=== PATIENT | male | born 1970 | race Caucasian/White ===

== ENCOUNTER 2016-05-19 22:52 | Inpatient (IN) | payer OTHER ==
[~2016-05-19] VITALS: Ht 190.5 cm; Wt 117.2 kg
[~2016-05-19 22:52] MED LIST: AMLO10TA2 PO; ASPI325T11 PO; ATOR20TA58 PO; CHOL500016 PO; INSU100V8 SQ; ISOS30TA4 PO; LEVO200T5 PO; LISI10TA2 PO; METH-38 PO; PRAS10TA4 PO; PREG200C PO; RANI150T2 PO; SITA100T PO
[2016-05-19 23:11] LABS: BASO # 0.1 x10^3/uL (0.0-0.2); BASO % 1 % (0-3); EOS % 1 % (0-3); HEMATOCRIT 49.1 % (39.0-53.0); HEMOGLOBIN 16.9 g/dL (13.0-17.5); LYMPH % 25 % (24-48); MEAN CORPUSCULAR HEMOGLOBIN 30 pg (25-35); MEAN CORPUSCULAR HGB CONC 35 g/dL (31-37); MEAN CORPUSCULAR VOLUME 87 fL (79-100); MONO % 10 % (0-9); NEUT % 64 % (31-73); PLATELET COUNT 143 x10^3/uL (140-400); RED BLOOD COUNT 5.67 x10^6/uL (4.30-5.70); RED CELL DISTRIBUTION WIDTH 13.4 % (11.5-14.5); WHITE BLOOD COUNT 12.3 x10^3/uL (4.0-11.0)
[2016-05-19 23:20] LABS: CALCIUM 9.3 mg/dL (8.5-10.1); CREATININE 1.2 mg/dL (0.7-1.3); GFR 65.2; POTASSIUM 3.8 mmol/L (3.5-5.1)
--- NOTE | 2016-05-19 23:22 | PHYS DOC ---
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 He has history of CAD with 3 stents placed back in September by Dr. Ortega nor he. He's been relatively chest pain-free since that time until this evening. He is also an uncontrolled diabetic he states his blood sugar has been difficult to control at home despite multiple medication changes it still ranges above 300. He currently rates his pain a 9 out of 10 localized to the described area. He denies any SOB. Patient is on aspirin and Effient therapy. Pt is in no acute distress and speaking in complete sentences saturating 99% on room air upon my initial evaluation. Review of Systems Review of Systems Constitutional: Denies fever or chills [] Eyes: Denies change in visual acuity, redness, or eye pain [] HENT: Denies nasal congestion or sore throat [] Respiratory: Denies cough or shortness of breath [] Cardiovascular: No additional information not addressed in HPI [] GI: Denies abdominal pain, nausea, vomiting, bloody stools or diarrhea [] : Denies dysuria or hematuria [] Musculoskeletal: Denies back pain or joint pain [] Integument: Denies rash or skin lesions [] Neurologic: Denies headache, focal weakness or sensory changes [] Endocrine: Denies polyuria or polydipsia [] Current Medications Current Medications Current Medications Medications (Trade) Dose Ordered Sig/Louie Start Time Stop Time Status Last Admin Dose Admin Fentanyl Citrate (Fentanyl 2ml Vial) 50 mcg Q2HR PRN 05/20/16 00:15 UNV Heparin Sodium (Porcine) 3,100 unit PRN Q6HRS PRN 05/19/16 23:45 05/19/16 23:59 3,100 UNIT Heparin Sodium/ Dextrose 500 ml @ 0 mls/hr CONT PRN 05/19/16 23:45 05/20/16 00:00 0 MLS/HR Nitroglycerin 0.4 mg 0.4 mg PRN Q5MIN PRN 05/19/16 23:30 05/19/16 23:47 0.4 MG Allergies Allergies Allergies Coded Allergies Type Severity Reaction Last Updated Verified morphine Allergy Intermediate violent 10/27/15 Yes Physical Exam Physical Exam Constitutional: Well developed, well nourished, no acute distress, non-toxic appearance. [] HENT: Normocephalic, atraumatic, bilateral external ears normal, oropharynx moist, no oral exudates, nose normal. [] Eyes: PERRLA, EOMI, conjunctiva normal, no discharge. [] Neck: Normal range of motion, no tenderness, supple, no stridor. [] Cardiovascular:Heart rate regular rhythm, no murmur [] Lungs & Thorax: Bilateral breath sounds clear to auscultation [] Abdomen: Bowel sounds normal, soft, no tenderness, no masses, no pulsatile masses. [] Skin: Warm, dry, no erythema, no rash. [] Back: No tenderness, no CVA tenderness. [] Extremities: No tenderness, no cyanosis, no clubbing, ROM intact, no edema. [] Neurologic: Alert and oriented X 3, normal motor function, normal sensory function, no focal deficits noted. [] Psychologic: Affect normal, judgement normal, mood normal. [] Current Patient Data Vital Signs Vital Signs Date Time Temp Pulse Resp B/P Pulse Ox O2 Delivery O2 Flow Rate FiO2 05/19/16 23:47 89 120/65 05/19/16 22:56 98.1 20 98 Room Air 98.1 Lab Values Laboratory Tests Test 05/19/16 23:04 05/19/16 23:20 White Blood Count 12.3x10^3/uL (4.0-11.0) H Red Blood Count 5.67x10^6/uL (4.30-5.70) Hemoglobin 16.9g/dL (13.0-17.5) Hematocrit 49.1% (39.0-53.0) Mean Corpuscular Volume 87fL (79-100) Mean Corpuscular Hemoglobin 30pg (25-35) Mean Corpuscular Hemoglobin Concent 35g/dL (31-37) Red Cell Distribution Width 13.4% (11.5-14.5) Platelet Count 143x10^3/uL (140-400) Neutrophils (%) (Auto) 64% (31-73) Lymphocytes (%) (Auto) 25% (24-48) Monocytes (%) (Auto) 10% (0-9) H Eosinophils (%) (Auto) 1% (0-3) Basophils (%) (Auto) 1% (0-3) Neutrophils # (Auto) 7.8x10^3uL (1.8-7.7) H Lymphocytes # (Auto) 3.0x10^3/uL (1.0-4.8) Monocytes # (Auto) 1.2x10^3/uL (0.0-1.1) H Eosinophils # (Auto) 0.1x10^3/uL (0.0-0.7) Basophils # (Auto) 0.1x10^3/uL (0.0-0.2) Platelet Estimate Adequate (ADEQUATE) Giant Platelets Present Sodium Level 137mmol/L (136-145) Potassium Level 3.8mmol/L (3.5-5.1) Chloride Level 100mmol/L (98-107) Carbon Dioxide Level 26mmol/L (21-32) Anion Gap 11 (6-14) Blood Urea Nitrogen 20mg/dL (8-26) Creatinine 1.2mg/dL (0.7-1.3) Estimated GFR (Cockcroft-Gault) 65.2 Glucose Level 333mg/dL (70-99) H Calcium Level 9.3mg/dL (8.5-10.1) Troponin I Quantitative < 0.017ng/mL (0.000-0.055) POC Troponin I 0.00ng/ml (<0.08) Laboratory Tests 05/19/16 23:04 Laboratory Tests 05/19/16 23:04 EKG EKG Initial EKG taken at 2259 reveals sinus rhythm with a rate of 86 bpm. There is some mild ST segment flattening to lead 3 and aVF but no other acute findings. This EKG does not meet STEMI criteria. Repeat EKG taken at 00:13 is essentially unchanged showing sinus rhythm with a rate of 88 bpm. This EKG does not meet STEMI criteria. Radiology/Procedures Radiology/Procedures One view of the chest as interpreted by me does not reveal an acute cardiopulmonary process. Course & Med Decision Making Course & Med Decision Making Pertinent Labs and Imaging studies reviewed. (See chart for details) This 46 her old male who is describing classic symptoms of unstable angina will be admitted to the hospital and started on heparin infusion protocol. I discussed the case with the on-call marketing developer, Dr. Juarez, who agreed with this assessment and plan and that the patient will likely receive a heart catheterization in the morning. His initial troponin is negative. Multiple EKGs were taken it did not show any evidence of acute ischemia. He is given several nitroglycerin without relief. Patient was then given fentanyl as needed for his pain. Admitted to the [facility] for further treatment. His need for admission was discussed with the hospitalist, Dr. Pritchett, who agreed with this plan. Dragon Disclaimer Dragon Disclaimer This electronic medical record was generated, in whole or in part, using a voice recognition dictation system. Departure Departure Impression: Primary Impression: Unstable angina Disposition: ADMITTED INPATIENT Admitting Physician: Other Condition: STABLE Referrals: GUNNAR OCAMPO MD (PCP) CYNTHIA PARISI DO May 19, 2016 23:22
[2016-05-19] MEDS: NITROGLYCERIN SUBLINGUAL 0.4 MG BOTTLE OF 25. SL PRN ×2 (23:26→23:47)
[2016-05-19 23:41] LABS: PLT ESTIMATE ADEQUATE (ADEQUATE)
[2016-05-19] MEDS ORDERED: HEPARIN for IV BOLUS 10,000 UNIT/10 ML VIAL. IV PRN (23:45)
[2016-05-19] MEDS ORDERED: HEPARIN 25,000UTS/500ML PREMIX 500 ML IV PRN (23:45)
[2016-05-20] VITALS (14 sets, daily range): BP systolic 107–141; BP diastolic 66–88
[2016-05-20] MEDS ORDERED: FENTANYL PF 100 MCG/2 ML VIAL. IV ONE ×2 (00:30→10:00)
[2016-05-20] MEDS ORDERED: LISI1TAB7 PO (01:39)
[2016-05-20] MEDS ORDERED: DULO30CA2 PO (01:40)
--- NOTE | 2016-05-20 01:43 | ACF ---
Admission Forms Criteria CHEST PAIN Clinical Indications for Admission to Inpatient Care (Place 'X' for any and all applicable criteria): Admission is indicated for chest pain and ANY ONE of the following(1)(2)(3)(4)(5 ): [ ]I. Angina with acute coronary syndrome (Also use Myocardial Infarction or Angina guideline) [ ]II. Hemodynamic instability [X]III. Angina needing acute intervention as indicated by ALL of the following( 11)(12): [X]a) Unstable angina is present as indicated by angina that is ANY ONE of the following: [ ]i) New onset [ ]ii) Nocturnal [ ]iii) Prolonged at rest [X]iv) Progressive [X]b) Angina warrants acute intervention as indicated by ANY ONE of the following: [ ]i) Recurrent angina (e.g, not responding as previously to treatment) [ ]ii) Angina at rest or with low-level activities despite initial medical therapy [ ]iii) New or presumably new ST-segment depression on ECG [ ]iv) Signs or symptoms of heart failure (eg, dyspnea, pulmonary edema) [ ]v) New or worsening mitral regurgitation [ ]vi) Hemodynamic instability [ ]vii) Dangerous arrhythmia (eg, sustained ventricular tachycardia) [ ]viii) History of percutaneous coronary intervention within 6 months [ ]ix) History of coronary artery bypass graft surgery [ ]x) LULU risk score of 2 or greater[A] [X]xi) History of Diabetes(14) [ ]xii) High-risk cardiac ischemia findings on noninvasive testing (e.g, echocardiogram, treadmill testing, nuclear scan) [ ]xiii) Chronic renal insufficiency (ie, estimated GFR less than 60 mL/min/1.732m) [ ]xiv) Left ventricular ejection fraction less than 40% [ ]IV. Evidence of DE (eg, cardiac biomarkers positive, ST-segment elevation on ECG) also use Myocardial Infarction Criteria Form. [ ]V. Pulmonary edema [ ]. Respiratory distress [ ]VII. Chest pain indicative of serious diagnosis other than coronary artery disease (eg, aortic dissection) [ ]VIII. Contraindications and/or Inappropriate clinical situations for Observational Care in patients with Chest Pain, when ANY ONE of the following is required: [ ]a) Patient with risk factor for pulmonary embolism, acute coronary syndrome and myocardial infarction (18) [ ]b) Patient with Pulmonary embolism require an average LOS of 4.3 days, therefore emergency department observation management is inappropriate 18,23 [ ]c) Painful condition/s in the elderly, have the highest rate of recidivism after emergency department observation management (10.8%) 20,21,22 [ ]d) Elevated cardiac biomarker requires intensive and exhaustive care (19) [ ]IX. General contraindications and/or Inappropriate clinical situations for Observational Care in patients with Chest Pain, when ANY ONE of the following is required: [ ]a) Prediction of prolongation of LOS based on ANY ONE of the following may be considered as a contraindication for observational care 2, 3, 4, 5, 6, 7, 8, 9, 10, 11 [ ]i) Age > 65 yrs. [ ]ii) Patient arriving by ambulance [ ]iii) Patient with high acuity [ ]iv) Patient requiring vital sign monitoring [ ]v) Patient on IV medication [ ]b) Systolic blood pressures 180mmHg 3,12 [ ]c) Patient with altered mental status including delirium and other alteration of consciousness, (3) [ ]d) Patient whose discharge disposition will be to a halfway home or rehabilitation home should not be managed in Emergency Department Observation Unit. CMS rule requires 3 days hospital stay before such placement. 3,13 [ ]e) Patient with failure to thrive due to broad array of etiologies 3,16,17 [ ]f) Inability to ambulate 3,14 Extended stay beyond goal length of stay may be needed for (1)(28): [ ]a) Specific condition diagnosed after evaluation (eg, pulmonary embolism, aortic dissection) [ ]b) Unstable angina [ ]c) Continued suspicion of acute coronary syndrome with inability to complete needed cardiac evaluation (eg, patient clinically unable to undergo stress testing) [ ]d) Myocardial infarction (Contents from ANGINA and CHEST PAIN clinical indications for admission to inpatient care have been integrated in this form) The original [employer] content created by [employer] has been revised. The portions of the content which have been revised are identified through the use of italic text or in bold, and [employer] has neither reviewed nor approved the modified material. All other unmodified content is copyright [employer]. Please see references footnoted in the original [facility] 2016 Admission Criteria Met?: Yes JILLIAN WILL May 20, 2016 01:43
[2016-05-20] MEDS: FENTANYL PF 100 MCG/2 ML VIAL. IV PRN ×3 (02:10→08:14)
--- NOTE | 2016-05-20 06:23 | EKG ---
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 MISSING LEAD V4. OTHERWISE NORMAL EKG. Electronically Signed On 05-21-2016 21:49:54 CDT by Risa Myles
--- NOTE | 2016-05-20 06:24 | EKG ---
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 MISSING LEAD TO V 4. OTHERWISE NORMAL EKG: . Electronically Signed On 05-23-2016 12:32:35 CDT by Risa Myles
--- NOTE | 2016-05-20 07:54 | RAD ---
Portable chest, 05/19/2016: History: Chest pain Comparison is made to a study from 10/27/2015. The heart size and pulmonary vascularity are normal. No pulmonary infiltrates are seen. There is no evidence of pleural fluid. IMPRESSION: No acute cardiopulmonary abnormality is detected.
--- NOTE | 2016-05-20 08:02 | EKG ---
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
[2016-05-20] MEDS ORDERED: IOHEXOL 300 MG/ML 100ML VIAL. ONE (08:13)
[2016-05-20] MEDS ORDERED: LIDOCAINE 2% 20 ML VIAL. ONE (08:14)
[2016-05-20] MEDS ORDERED: FENTANYL PF 100 MCG/2 ML VIAL. ONE (09:38)
[2016-05-20] MEDS ORDERED: MIDAZOLAM HCL 2 MG/2 ML VIAL. ONE (09:38)
--- NOTE | 2016-05-20 09:48 | PDOC2 ---
ANN MARTINEZ GOLD FRAME ASSEMBLER 05/20/16 0948: CARDIAC CONSULT DATE OF CONSULT Date of Consult DATE: 05/20/16 TIME: 09:24 REASON FOR CONSULT Reason for Consult: Chest Pain REFERRING PHYSICIAN Referring Physician: Dr. Modi SOURCE Source: Chart review HISTORY OF PRESENT ILLNESS HISTORY OF PRESENT ILLNESS This is a 46 yo male, witha histroy of CAD s/p PCI to RCA and LCx 09/2015, HTN, HLP, and DM II, who presented with complaints of chest pain. Patient reports acute onset of pain yesterday evening around 8 pm while he was sitting using his computer. Describes as tightness. Radiates to his left and arm jaw with. No exacerbating or relieving factors. Associated with nausea, diaphoresis, and "restricted" breathing. Denies any dizziness or palpitations. No recent illness or fevers. Patient states pain is similar to previous [place], although pain was localized and did not radiated prior. Reports compliance with medications. PAST MEDICAL HISTORY Cardiovascular: CAD (s/p PCI/SEVERIANO to RCA and LCx 09/27/15), HTN, [place], Hyperlipidemia Pulmonary: No pertinent hx CENTRAL NERVOUS SYSTEM: Periperal neuropathy GI: No pertinent hx Heme/Onc: No pertinent hx Hepatobiliary: No pertinent hx Psych: No pertinent hx Musculoskeletal: Osteoarthritis Rheumatologic: No pertinent hx Infectious disease: No pertinent hx ENT: No pertinent hx Renal/: Chronic renal insuff Endocrine: Diabetes, Hypothyroidism Dermatology: No pertinent hx PAST SURGICAL HISTORY Past Surgical History: Cholecystectomy, Other (ureteral stenting; PCI/SEVERIANO 2015) FAMILY HISTORY Family History: Coronary Artery Disease, Diabetes, Hypertension SOCIAL HISTORY Smoke: No ALCOHOL: occassional Drugs: None Lives: with Family CURRENT MEDICATIONS CURRENT MEDICATIONS Current Medications Medications (Trade) Dose Ordered Sig/Louie Route PRN Reason Start Time Stop Time Status Last Admin Dose Admin Nitroglycerin 0.4 mg 0.4 mg PRN Q5MIN PRN SL CHEST PAIN 05/19/16 23:30 05/19/16 23:47 Heparin Sodium/ Dextrose 500 ml @ 0 mls/hr CONT PRN IV SEE I/O RECORD 05/19/16 23:45 05/20/16 00:00 Heparin Sodium (Porcine) 3,100 unit PRN Q6HRS PRN IV FOR UFH LEVEL LESS THAN 0.2 05/19/16 23:45 05/19/16 23:59 Fentanyl Citrate (Fentanyl 2ml Vial) 50 mcg 1X ONCE IV 05/20/16 00:30 05/20/16 00:31 DC 05/20/16 00:42 Fentanyl Citrate (Fentanyl 2ml Vial) 50 mcg PRN Q2HR PRN IV CHEST PAIN 05/20/16 00:30 05/20/16 08:14 ALLERGIES ALLERGIES: Coded Allergies: No Known Medication Allergies (Verified Allergy, Unknown, 05/20/16) morphine (Verified Adverse Reaction, Intermediate, violent reactions, 05/20) ROS Review of System 14 point ROS conducted with pertinent positives noted above in HPI. PHYSICAL EXAM General: Alert, Oriented X3, Cooperative, No acute distress HEENT: Mucous membr. moist/pink Lungs: Clear to auscultation, Normal air movement Heart: Regular rate, Normal S1, Normal S2, No murmurs Abdomen: Soft, No hepatosplenomegaly Extremities: No cyanosis, No edema, Normal pulses Skin: No significant lesion Neuro: Normal speech, Sensation intact Psych/Mental Status: Mental status NL, Mood NL MUSCULOSKELETAL: Full range of motion without pain VITALS VITALS Vital Signs Date Time Temp Pulse Resp B/P Pulse Ox O2 Delivery O2 Flow Rate FiO2 05/20/16 08:44 Room Air 05/20/16 07:00 97.9 66 18 131/78 95 97.9 LABS Lab: Laboratory Tests Test 05/19/16 23:04 05/19/16 23:20 05/20/16 06:10 05/20/16 07:27 White Blood Count 12.3x10^3/uL (4.0-11.0) Red Blood Count 5.67x10^6/uL (4.30-5.70) Hemoglobin 16.9g/dL (13.0-17.5) Hematocrit 49.1% (39.0-53.0) Mean Corpuscular Volume 87fL (79-100) Mean Corpuscular Hemoglobin 30pg (25-35) Mean Corpuscular Hemoglobin Concent 35g/dL (31-37) Red Cell Distribution Width 13.4% (11.5-14.5) Platelet Count 143x10^3/uL (140-400) Neutrophils (%) (Auto) 64% (31-73) Lymphocytes (%) (Auto) 25% (24-48) Monocytes (%) (Auto) 10% (0-9) Eosinophils (%) (Auto) 1% (0-3) Basophils (%) (Auto) 1% (0-3) Neutrophils # (Auto) 7.8x10^3uL (1.8-7.7) Lymphocytes # (Auto) 3.0x10^3/uL (1.0-4.8) Monocytes # (Auto) 1.2x10^3/uL (0.0-1.1) Eosinophils # (Auto) 0.1x10^3/uL (0.0-0.7) Basophils # (Auto) 0.1x10^3/uL (0.0-0.2) Platelet Estimate Adequate (ADEQUATE) Giant Platelets Present Sodium Level 137mmol/L (136-145) Potassium Level 3.8mmol/L (3.5-5.1) Chloride Level 100mmol/L (98-107) Carbon Dioxide Level 26mmol/L (21-32) Anion Gap 11 (6-14) Blood Urea Nitrogen 20mg/dL (8-26) Creatinine 1.2mg/dL (0.7-1.3) Estimated GFR (Cockcroft-Gault) 65.2 Glucose Level 333mg/dL (70-99) Calcium Level 9.3mg/dL (8.5-10.1) Troponin I Quantitative < 0.017ng/mL (0.000-0.055) < 0.017ng/mL (0.000-0.055) Bedside Troponin I 0.00ng/ml (<0.08) Heparin Anti-Xa Act, Unfractionated 0.31IU/mL (0.30-0.70) Glucose (Fingerstick) 173mg/dL (70-99) ECHOCARDIOGRAM ECHOCARDIOGRAM <Conclusion> The aortic valve is not well visualized. Cannot rule out bicusped aortic valve. Doppler and Color Flow revealed no significant aortic regurgitation. There is no significant aortic valvular stenosis. Left ventricle systolic function is low normal. The Ejection Fraction is 50-55%. There is normal LV segmental wall motion. DATE: 10/28/15 1011 HEART CATH HEART CATH Conclusion 1. Severe two-vessel coronary artery disease 2. Successful PCI/drug eluting stents placement to the right coronary and left circumflex arteries 3. Normal left ventricle systolic function with ejection fraction estimated at 60% Recommendations 1. Aspirin 325 mg daily 2. Effient 10 mg daily for preferably one year 3. Cardiovascular risk factor modification DATE: 09/27/15 1648 ASSESSMENT/PLAN ASSESSMENT/PLAN 1. Chest pain, with typical features 2. CAD s/p PCI/SEVERIANO to RCA and LCx 09/2015 3. Hypertension 4. Hyperlipidemia 5. Diabetes, uncontrolled 6. Hypothyroidism Recommendations Heparin gtt initiated check lipids, TSH Given symptomatology, history and significant risk factors, coronary angiogram recommended. Discussed b/r/a with patient and is agreeable. Will proceed with cath. Management of diabetes per PCP Problems: IRENE MORSE MD 05/20/16 2225: CARDIAC CONSULT ALLERGIES ALLERGIES: Coded Allergies: No Known Medication Allergies (Verified Allergy, Unknown, 05/20/16) morphine (Verified Adverse Reaction, Intermediate, violent reactions, 05/20) ASSESSMENT/PLAN ASSESSMENT/PLAN Pt. seen and examined. Agree with above CLUTCH INSPECTOR note. 46 y.o male presenting with crushing chest pain. No biomarker elevation. Prior PCI normal cardiac exam repeat cath due to symptoms and history, No new lesions to intervene. Rapid progressive ISR (about 40% in a year) Needs strict sugar control. ' Aggressive medical therapy. Will follow. Pain non-cardiac in origin Problems: ANN MARTINEZ APRN May 20, 2016 09:48 IRENE MORSE MD May 20, 2016 22:25
[2016-05-20] MEDS ORDERED: HEPARIN for IV BOLUS 10,000 UNIT/10 ML VIAL. ONE (09:56)
[2016-05-20] MEDS ORDERED: LIDOCAINE 2% 20 ML VIAL. IJ ONE (10:00)
[2016-05-20] MEDS ORDERED: IOHEXOL 300 MG/ML 100ML VIAL. IART ONE (10:00)
[2016-05-20] MEDS ORDERED: CONTRAST GIVEN MC PRN (10:00)
[2016-05-20] MEDS ORDERED: MIDAZOLAM HCL 2 MG/2 ML VIAL. IV ONE (10:00)
[2016-05-20 10:13] LABS: CHOLESTEROL/HDL RATIO 3.4
[2016-05-20] MEDS ORDERED: DEXTROSE 50% 25 GM / 50ML DISP.SYRIN. IV PRN (10:30)
[2016-05-20] MEDS ORDERED: HEPARIN for IV BOLUS 10,000 UNIT/10 ML VIAL. IV ONE (10:30)
--- NOTE | 2016-05-20 10:30 | PDOC1 ---
History and Physical Past Medical History Cardiovascular: CAD (s/p PCI/SEVERIANO to RCA and LCx 09/27/15), HTN, [place], Hyperlipidemia Pulmonary: No pertinent hx CENTRAL NERVOUS SYSTEM: Periperal neuropathy GI: No pertinent hx Heme/Onc: No pertinent hx Hepatobiliary: No pertinent hx Psych: No pertinent hx Rheumatologic: No pertinent hx Infectious disease: No pertinent hx ENT: No pertinent hx Renal/: Chronic renal insuff Endocrine: Diabetes, Hypothyroidism Dermatology: No pertinent hx Past Surgical History Past Surgical History: Cholecystectomy, Other (ureteral stenting; PCI/SEVERIANO 2015) Family History Family History: Coronary Artery Disease, Diabetes, Hypertension Social History Smoke: No ALCOHOL: occassional Drugs: None Current Problem List Problem List Problems Medical Problems: (1) Unstable angina Status: Acute Current Medications Current Medications Current Medications Medications (Trade) Dose Ordered Sig/Louie Start Time Stop Time Status Last Admin Dose Admin Fentanyl Citrate (Fentanyl 2ml Vial) 100 mcg 1X ONCE 05/20/16 10:00 05/20/16 10:01 DC 05/20/16 10:13 100 MCG Heparin Sodium (Porcine) 6,000 unit 1X ONCE 05/20/16 10:30 05/20/16 10:31 05/20/16 10:15 6,000 UNIT Heparin Sodium/ Dextrose 500 ml @ 0 mls/hr CONT PRN 05/19/16 23:45 05/20/16 00:00 0 MLS/HR Heparin Sodium/ Sodium Chloride 1,000 unit 1X ONCE 05/20/16 10:00 05/20/16 10:01 DC 05/20/16 10:14 1,000 UNIT Info (Do NOT chart on this entry -- for MONITORING) 1 each PRN DAILY PRN 05/20/16 10:00 05/22/16 09:59 Iohexol (Omnipaque 300 Mg/ml) 100 ml 1X ONCE 05/20/16 10:00 05/20/16 10:01 DC 05/20/16 10:13 110 ML Lidocaine HCl 20 ml 1X ONCE 05/20/16 10:00 05/20/16 10:01 DC 05/20/16 10:14 20 ML Midazolam HCl (Versed) 2 mg 1X ONCE 05/20/16 10:00 05/20/16 10:01 DC 05/20/16 10:13 2 MG Nitroglycerin 0.4 mg 0.4 mg PRN Q5MIN PRN 05/19/16 23:30 05/19/16 23:47 0.4 MG Allergies Allergies Allergies Coded Allergies Type Severity Reaction Last Updated Verified morphine Adverse Reaction Intermediate serena reactions 05/20/16 Yes ROS Review of System CONSTITUTIONAL: No fever or chills EYES: No recent changes SKIN: No rash or itching CARDIOVASCULAR: No chest pain, syncope, palpitations, or edema RESPIRATORY: No SOB or cough GASTROINTESTINAL: No nausea, vomiting or abdominal pain NEUROLOGICAL: No headaches or weakness ENDOCRINE: No cold or heat intolerance GENITOURINARY: No urgency or frequency of urination MUSCULOSKELETAL: No back pain or joint pain LYMPHATICS: No enlarged lymph nodes PSYCHIATRIC: No anxiety or depression Physical Exam Physical Exam GEN.: No apparent distress. Alert and oriented. HEENT: Head is normocephalic, atraumatic NECK: Supple. LUNGS: Clear to auscultation. HEART: RRR, S1, S2 present. Peripheral pulses intact ABDOMEN: Soft, nontender. Positive bowel sounds. EXTREMITIES: Without any cyanosis. NEUROLOGIC: Normal speech, normal tone PSYCHIATRIC: Normal affect, normal mood. SKIN: No ulcerations Vitals Vitals Vital Signs Date Time Temp Pulse Resp B/P Pulse Ox O2 Delivery O2 Flow Rate FiO2 05/20/16 10:13 16 100 Room Air 05/20/16 10:10 69 2.0 05/20/16 07:00 97.9 131/78 97.9 Labs Labs Laboratory Tests Test 05/19/16 23:04 05/19/16 23:20 05/20/16 06:10 05/20/16 07:27 White Blood Count 12.3x10^3/uL (4.0-11.0) Red Blood Count 5.67x10^6/uL (4.30-5.70) Hemoglobin 16.9g/dL (13.0-17.5) Hematocrit 49.1% (39.0-53.0) Mean Corpuscular Volume 87fL (79-100) Mean Corpuscular Hemoglobin 30pg (25-35) Mean Corpuscular Hemoglobin Concent 35g/dL (31-37) Red Cell Distribution Width 13.4% (11.5-14.5) Platelet Count 143x10^3/uL (140-400) Neutrophils (%) (Auto) 64% (31-73) Lymphocytes (%) (Auto) 25% (24-48) Monocytes (%) (Auto) 10% (0-9) Eosinophils (%) (Auto) 1% (0-3) Basophils (%) (Auto) 1% (0-3) Neutrophils # (Auto) 7.8x10^3uL (1.8-7.7) Lymphocytes # (Auto) 3.0x10^3/uL (1.0-4.8) Monocytes # (Auto) 1.2x10^3/uL (0.0-1.1) Eosinophils # (Auto) 0.1x10^3/uL (0.0-0.7) Basophils # (Auto) 0.1x10^3/uL (0.0-0.2) Platelet Estimate Adequate (ADEQUATE) Giant Platelets Present Sodium Level 137mmol/L (136-145) Potassium Level 3.8mmol/L (3.5-5.1) Chloride Level 100mmol/L (98-107) Carbon Dioxide Level 26mmol/L (21-32) Anion Gap 11 (6-14) Blood Urea Nitrogen 20mg/dL (8-26) Creatinine 1.2mg/dL (0.7-1.3) Estimated GFR (Cockcroft-Gault) 65.2 Glucose Level 333mg/dL (70-99) Calcium Level 9.3mg/dL (8.5-10.1) Troponin I Quantitative < 0.017ng/mL (0.000-0.055) < 0.017ng/mL (0.000-0.055) Bedside Troponin I 0.00ng/ml (<0.08) Heparin Anti-Xa Act, Unfractionated 0.31IU/mL (0.30-0.70) Triglycerides Level 248mg/dL (0-150) Cholesterol Level 123mg/dL (0-200) LDL Cholesterol, Calculated 37mg/dL (0-100) VLDL Cholesterol, Calculated 50mg/dL (0-40) HDL Cholesterol 36mg/dL (40-60) Cholesterol/HDL Ratio 3.4 Thyroid Stimulating Hormone (TSH) 5.956uIU/mL (0.358-3.74) Glucose (Fingerstick) 173mg/dL (70-99) Laboratory Tests Test 05/19/16 23:04 3/14/17 23:20 05/20/16 06:10 05/20/16 07:27 White Blood Count 12.3x10^3/uL (4.0-11.0) Red Blood Count 5.67x10^6/uL (4.30-5.70) Hemoglobin 16.9g/dL (13.0-17.5) Hematocrit 49.1% (39.0-53.0) Mean Corpuscular Volume 87fL (79-100) Mean Corpuscular Hemoglobin 30pg (25-35) Mean Corpuscular Hemoglobin Concent 35g/dL (31-37) Red Cell Distribution Width 13.4% (11.5-14.5) Platelet Count 143x10^3/uL (140-400) Neutrophils (%) (Auto) 64% (31-73) Lymphocytes (%) (Auto) 25% (24-48) Monocytes (%) (Auto) 10% (0-9) Eosinophils (%) (Auto) 1% (0-3) Basophils (%) (Auto) 1% (0-3) Neutrophils # (Auto) 7.8x10^3uL (1.8-7.7) Lymphocytes # (Auto) 3.0x10^3/uL (1.0-4.8) Monocytes # (Auto) 1.2x10^3/uL (0.0-1.1) Eosinophils # (Auto) 0.1x10^3/uL (0.0-0.7) Basophils # (Auto) 0.1x10^3/uL (0.0-0.2) Platelet Estimate Adequate (ADEQUATE) Giant Platelets Present Sodium Level 137mmol/L (136-145) Potassium Level 3.8mmol/L (3.5-5.1) Chloride Level 100mmol/L (98-107) Carbon Dioxide Level 26mmol/L (21-32) Anion Gap 11 (6-14) Blood Urea Nitrogen 20mg/dL (8-26) Creatinine 1.2mg/dL (0.7-1.3) Estimated GFR (Cockcroft-Gault) 65.2 Glucose Level 333mg/dL (70-99) Calcium Level 9.3mg/dL (8.5-10.1) Troponin I Quantitative < 0.017ng/mL (0.000-0.055) < 0.017ng/mL (0.000-0.055) Bedside Troponin I 0.00ng/ml (<0.08) Heparin Anti-Xa Act, Unfractionated 0.31IU/mL (0.30-0.70) Triglycerides Level 248mg/dL (0-150) Cholesterol Level 123mg/dL (0-200) LDL Cholesterol, Calculated 37mg/dL (0-100) VLDL Cholesterol, Calculated 50mg/dL (0-40) HDL Cholesterol 36mg/dL (40-60) Cholesterol/HDL Ratio 3.4 Thyroid Stimulating Hormone (TSH) 5.956uIU/mL (0.358-3.74) Glucose (Fingerstick) 173mg/dL (70-99) VTE Prophylaxis Ordered VTE Prophylaxis Devices: Yes VTE Pharmacological Prophylaxi: Yes MAURY MORIN MD May 20, 2016 10:30
[2016-05-20] MEDS: ISOSORBIDE MONONITRATE ER 30 MG TAB.ER.24H PO SCH (11:00)
[2016-05-20] MEDS: FAMOTIDINE 20 MG TABLET. PO SCH (11:00)
[2016-05-20] MEDS: AMLODIPINE BESYLATE 10 MG TABLET PO SCH (11:00)
[2016-05-20] MEDS ORDERED: ATORVASTATIN CALCIUM 40 MG TABLET. PO SCH ×2 (11:00→21:00)
[2016-05-20] MEDS ORDERED: ANTI-COAG MONITOR BY PHARMACY. MC PRN (11:15)
[2016-05-20] MEDS: HYDROCHLOROTHIAZIDE 25 MG TABLET PO SCH (11:30)
[2016-05-20] MEDS ORDERED: HYDROCODONE/APAP 5/325MG TABLET. PO PRN (12:45)
[2016-05-20] MEDS: PREGABALIN 50 MG CAPSULE PO SCH ×2 (12:58→21:31)
[2016-05-20] MEDS: CHOLECALCIFEROL (VITAMIN D3) 5,000 UNIT CAPSULE PO SCH (12:58)
[2016-05-20] MEDS: LEVOTHYROXINE 100 MCG TABLET PO SCH (12:59)
[2016-05-20] MEDS: PRASUGREL 10 MG TABLET. PO SCH (12:59)
[2016-05-20] MEDS: DULOXETINE HCL 30 MG CAPSULE.DR. PO SCH ×2 (12:59→21:31)
[2016-05-20] MEDS: LINAGLIPTIN 5 MG TABLET PO SCH (12:59)
[2016-05-20] MEDS: ASPIRIN ENTERIC COATED 325 MG TABLET.DR. PO SCH (12:59)
[2016-05-20] MEDS: LISINOPRIL 20 MG TABLET PO SCH (13:00)
[2016-05-20] MEDS: HYDROCODONE/APAP 5/325MG TABLET. PO PRN ×3 (13:01→22:06)
[2016-05-20] MEDS: INSULIN ASPART 300 UNITS/3 ML INSULN.PEN SQ SCH ×2 (13:08→17:21)
--- NOTE | 2016-05-20 13:45 | RAD ---
Bilateral lower extremity venous ultrasound, 05/20/2016: History: Bilateral leg pain Duplex evaluation of the deep veins in the lower extremities was performed including grayscale, color-flow and spectral Doppler analysis. The femoral and popliteal veins demonstrate normal compressibility and normal responses to distal augmentation maneuvers. Color imaging of those vessels shows no evidence of intraluminal clot. The visualized deep veins in both calves are patent. IMPRESSION: There is no sonographic evidence of deep vein thrombosis in either lower extremity.
--- NOTE | 2016-05-20 19:09 | CARD ---
APPROVED REPORT Procedure(s) performed: Left Heart Catheterization + coronary angiography iFR of RCA: 0.97 110 mL Omnipaque 300 3.3 mins Fluoro [id number] 707.42mGy HISTORY The patient is a 46 year-old male with a history of : previous PCI (The PCI date was ). INDICATION The indication(s) include : unstable angina . PROCEDURE NARRATIVE The patient was brought electively to the cardiac catheterization lab. A timeout was performed confi rming the patient's name, date of , procedure, and site of procedure. All necessary personnel w ere wearing the appropriate protective equipment and radiation monitor devices. After explaining the risks and benefits of the procedure and alternatives, informed consent was obtained. (See nursing no chintan for medications administered). The right groin was sterilely prepped and draped in the usual fas hion. The right groin was infiltrated with 10 mL of 2% lidocaine for subcutaneous anesthesia. A 6 F rench Terumo glide sheath was inserted into the right radial artery without difficulty. Right and le ft coronary angiography was performed using standard diagnostic JR4 and JL4 catheters. Left ventricu lar end diastolic pressure was obtained with a pigtail catheter and pullback was performed. HEMODYNAMICS: LVEDP 10 mm Hg No gradient on LV to aortic pullback. CORONARY ANGIOGRAPHY: LM is a large caliber vessel with normal angiographic appearance. LAD is a large caliber vessel with normal angiographic appearance. Ramus is a moderate caliber vessel with normal angiographic apeparance. LCx is a moderate caliber non-dominant vessel with normal angiographic appearance. OM1 is a moderate caliber vessel with patent previously placed stents. RCA is a large caliber dominant vessel with 50 ISR of the mid overlapping previously place stents and mild distal diffuse disease. RPDA and RPL are moderate caliber vessels with normal angiographic appearance. INTERVENTIONAL TECHINQUE: iFR of RCA Based upon the presentation and intermediate disease in the mid RCA and ischemic evaluation was obtai laron. A instantaneous wave free ratio was obtained of the right coronary artery. Heparin 6000 units wa s administered for anticoagulation. Next a pressure wire was advanced to the distal RCA after appropr iate normalization in the aorta. And IFR was measured at 0.97. Given that this was not significant fu rther intervention was deferred. Final angiography post IFR did not reveal any significant pathology. All catheter exchanges and advancements were performed over a guidewire. At case completion the rig ht groin sheath was removed and hemostasis was achieved with an Angioseal device. Conclusion 1. Normal left ventricular filling pressures. 2. Patent stents in the right coronary artery and left circumflex vessels. 3. Negative iFR of the right coronary artery. Recommendations Aggressive Medical Therapy
--- NOTE | 2016-05-20 19:56 | HP ---
ADMIT DATE: 05/20/2016 CHIEF COMPLAINT: Chest pain. HISTORY OF PRESENT ILLNESS: A 46-year-old male patient with prior history of coronary artery disease with RCA PCI and left circumflex PCI in the past 2015 and also several comorbid conditions such as diabetes mellitus, presented to the ER with complaints of chest pain that started around 8:00 p.m. yesterday and also pain is located in the left shoulder region and radiating to his left arm and also left side neck. He described it as tightness and denies any nausea or vomiting; however, it gets worse with deep breathing and denies any relief with nitroglycerin. He denies any other complaints such as fever, chills, or travel history. PAST MEDICAL HISTORY: Coronary artery disease, hypertension, hyperlipidemia, osteoarthritis, chronic renal insufficiency, diabetes mellitus, hypothyroidism. PAST SURGICAL HISTORY: Cholecystectomy, ureteral stenting. FAMILY HISTORY: Coronary artery disease, diabetes, and hypertension. SOCIAL HISTORY: No smoking, no alcohol, no drug abuse, disabled. MEDICATIONS: Please see my electronic H and P. ALLERGIES: MORPHINE. REVIEW OF SYSTEMS: Please see my electronic H and P. PHYSICAL EXAMINATION: Please see my electronic H and P. LABORATORY FINDINGS: Hematology: WBC 12.3, hemoglobin 16.9, MCV is 87, platelets 143. Chemistry: Within normal range. Troponins 2 sets less than 0.017. IMAGING STUDIES: Chest x-ray: No acute cardiopulmonary process seen. EKG could not able to verify. As per the ER report, no acute ST-T wave changes. ASSESSMENT: 1. Chest pain, atypical. 2. Significant history of coronary artery disease with PCI to RCA and left circumflex in 2016. 3. Hypertension. 4. Type 2 diabetes mellitus with hyperglycemia. 5. Hypothyroidism. 6. Obesity, BMI 33. PLAN: 1. The patient has been taken into cardiac catheterization today given his severe chest pain and comorbid conditions as per the preliminary report he has clear coronaries has seen patient after cardiac catheterization. At the time of my examination, he is chest pain free. We will continue aspirin and Effient. 2. Ordered sliding scale insulin for hyperglycemia. 3. Pain control with Lortab. 4. Continue other home medications such as Lyrica, linagliptin, and hydrochlorothiazide. 5. We like to rule out DVT and PE or D-dimer and lower extremity ultrasound. 6. Monitor CBC, BMP in the a.m. 7. Post-cath protocol. MAURY MORIN MD DR: Samir JOB#: [id number] / [id number] MTDD
[2016-05-20] MEDS ORDERED: INSULIN DETEMIR 300 UNITS/3 ML INSULN.PEN. SQ SCH (21:00)
[2016-05-21] MEDS: HYDROCODONE/APAP 5/325MG TABLET. PO PRN ×2 (01:46→08:02)
[2016-05-21 03:42] VITALS: BP 120/76
[2016-05-21 07:56] VITALS: BP 129/79
[2016-05-21] MEDS: INSULIN ASPART 300 UNITS/3 ML INSULN.PEN SQ SCH ×2 (07:58→12:03)
[2016-05-21] MEDS: LEVOTHYROXINE 100 MCG TABLET PO SCH (07:58)
[2016-05-21] MEDS: PREGABALIN 50 MG CAPSULE PO SCH (08:21)
[2016-05-21] MEDS: LINAGLIPTIN 5 MG TABLET PO SCH (08:21)
[2016-05-21] MEDS: DULOXETINE HCL 30 MG CAPSULE.DR. PO SCH (08:21)
[2016-05-21] MEDS: ASPIRIN ENTERIC COATED 325 MG TABLET.DR. PO SCH (08:21)
[2016-05-21] MEDS: CHOLECALCIFEROL (VITAMIN D3) 5,000 UNIT CAPSULE PO SCH (08:22)
[2016-05-21] MEDS: FAMOTIDINE 20 MG TABLET. PO SCH (08:22)
[2016-05-21] MEDS: ISOSORBIDE MONONITRATE ER 30 MG TAB.ER.24H PO SCH (08:23)
[2016-05-21] MEDS: PRASUGREL 10 MG TABLET. PO SCH (08:24)
[2016-05-21] MEDS: HYDROCHLOROTHIAZIDE 25 MG TABLET PO SCH (08:28)
[2016-05-21] MEDS: AMLODIPINE BESYLATE 10 MG TABLET PO SCH (08:28)
[2016-05-21] MEDS: LISINOPRIL 20 MG TABLET PO SCH (08:31)
[2016-05-21 11:00] VITALS: BP 118/69
[2016-05-21] MEDS ORDERED: HYDR-971 PO (12:57)
--- NOTE | 2016-05-23 23:50 | DS ---
DATE OF DISCHARGE: 05/21/2016 DISCHARGE DIAGNOSES: 1. Atypical chest pain, possibly musculoskeletal. 2. Prior history of significant coronary artery disease and PCI to RCA and left circumflex. 3. Hypertension, stable. 4. Type 2 diabetes mellitus, stable. 5. Hypothyroidism. 6. Obesity. BRIEF HOSPITAL COURSE: A 46-year-old male presenting with left-sided chest pain, given his coronary history and typical nature of the symptoms. He was evaluated and admitted to the hospital for cardiac step down and Cardiology has been consulted. The patient has no elevation of troponins; however, given his history of severe coronary artery disease, Cardiology is recommended to have cardiac catheterization, which is negative for any acute findings. His filling pressures are normal and patent stents in the right coronary artery and left circumflex vessels. Cardiology recommended him to have aggressive medical management and the patient's symptoms improved with icepack and also be ruled out DVT and PE. At the time of discharge, he has been in stable condition. He was recommended to see primary care doctor as needed for further workup. DISCHARGE EXAMINATION: GENERAL: Alert, oriented x 3. HEART: S1, S2 present. LUNGS: Anterior chest clear. ABDOMEN: Soft, nontender, no organomegaly. EXTREMITIES: No edema. DISCHARGE DISPOSITION: Home. DISCHARGE CONDITION: Stable. DIET: Cardiac. DISCHARGE MEDICATIONS: New medications, [place] 5/325 t.i.d. p.r.n. for pain. Follow up with the primary care doctor for further workup of chest pain. Total time spent for discharge is 35 minutes for the patient education, counseling, and coordination of care. MAURY MORIN MD DR: ERNESTO/melisa JOB#: [id number] / [id number] EVANGELINA
== END 2016-05-21 14:00 | disposition home or self-care (01) | DRG 287 ==
LOC: ER 22:52 → CVICU 23:18
PROVIDERS: ADMIT Internal Medicine Hematology & Oncology; ATTEND Internal Medicine Hematology & Oncology
PROC: 4A023N7 Measurement of Cardiac Sampling and Pressure, Left Heart, Percutaneous Approach (ICD-10-PCS; principal; 2016-05-20)
PROC: B2111ZZ Fluoroscopy of Multiple Coronary Arteries using Low Osmolar Contrast (ICD-10-PCS; 2016-05-20)
DX: R07.89 Other chest pain (principal); I25.110 Atherosclerotic heart disease of native coronary artery with unstable angina pectoris; E03.9 Hypothyroidism, unspecified; E11.22 Type 2 diabetes mellitus with diabetic chronic kidney disease; E11.65 Type 2 diabetes mellitus with hyperglycemia; E66.9 Obesity, unspecified; N18.9 Chronic kidney disease, unspecified; E78.5 Hyperlipidemia, unspecified; E11.42 Type 2 diabetes mellitus with diabetic polyneuropathy; M19.90 Unspecified osteoarthritis, unspecified site; I12.9 Hypertensive chronic kidney disease with stage 1 through stage 4 chronic kidney disease, or unspecified chronic kidney disease; Z68.33 Body mass index [BMI] 33.0-33.9, adult; Z79.82 Long term (current) use of aspirin; Z82.49 Family history of ischemic heart disease and other diseases of the circulatory system; Z87.442 Personal history of urinary calculi; Z83.3 Family history of diabetes mellitus; Z88.5 Allergy status to narcotic agent; Z95.5 Presence of coronary angioplasty implant and graft; I25.2 Old myocardial infarction; Z90.49 Acquired absence of other specified parts of digestive tract
CPT/HCPCS: 36415; 71010; 80048; 80061; 82947; 84443; 84484; 85007; 85027; 85379; 85520; 93005; 93458; 93571; 93970; 96365; 96375; 96376; C1769; C1771; C1887; C1892; G0269; J1815; J2250; J3010; Q9967; 99285-25

== ENCOUNTER 2017-03-05 05:49 | Day surgery (SDC) | payer OTHER ==
[2017-03-05] MEDS: IV RINGERS,LACTATED 1000ML 1,000 ML IV (06:25)
[2017-03-05 06:26] LABS: POC GLUCOSE 192 mg/dL (70-99)
[2017-03-05] MEDS ORDERED: PROCHLORPERAZINE 10 MG/2 ML VIAL. IV (07:00)
[2017-03-05] MEDS ORDERED: ONDANSETRON PF 4 MG/2 ML VIAL. IV (07:00)
[2017-03-05] MEDS ORDERED: LIDOCAINE 1% PF 2 ML VIAL. ID (07:00)
[2017-03-05] MEDS ORDERED: fentaNYL PF VIAL 100 MCG/2 ML VIAL IV (07:00)
[2017-03-05] MEDS ORDERED: DEXAMETHASONE SOD PHOS 20 MG/5 ML VIAL. (07:13)
[2017-03-05] MEDS ORDERED: fentaNYL PF VIAL 100 MCG/2 ML VIAL (07:13)
[2017-03-05] MEDS ORDERED: PROPOFOL 20 ML IV (07:13)
[2017-03-05] MEDS ORDERED: MIDAZOLAM HCL/PF 2 MG/2 ML VIAL. (07:13)
[2017-03-05] MEDS ORDERED: LIDOCAINE 2% PF Vial for OR 5 ML VIAL. (07:13)
[2017-03-05] MEDS ORDERED: ONDANSETRON PF 4 MG/2 ML VIAL. (07:13)
[2017-03-05] MEDS ORDERED: GLYCOPYRROLATE 1 MG/5 ML VIAL. (07:13)
[2017-03-05] MEDS ORDERED: ROCURONIUM 50 MG/5 ML VIAL. (07:14)
[2017-03-05] MEDS ORDERED: NEOSTIGMINE METHYLSULFATE 5 MG/5 ML SYRINGE. (07:14)
[2017-03-05] MEDS ORDERED: SEVOFLURANE 61 TO 120 MINUTES. IH (08:44)
[2017-03-05 09:08] LABS: POC GLUCOSE 163 mg/dL (70-99)
[2017-03-05] MEDS: fentaNYL PF VIAL 100 MCG/2 ML VIAL IV ×2 (09:47→09:52)
[2017-03-05] MEDS: HYDROmorphone 2 MG/ML VIAL IV ×4 (09:57→10:35)
[2017-03-05] MEDS: oxyCODONE ORAL SOLUTION 5 MG/5 ML SOLUTION PO (10:40)
== END 2017-03-05 11:34 | disposition home or self-care (01) ==
LOC: SURG 05:49
DX: J35.01 Chronic tonsillitis (principal); E11.9 Type 2 diabetes mellitus without complications; I25.2 Old myocardial infarction; I25.10 Atherosclerotic heart disease of native coronary artery without angina pectoris; F17.228 Nicotine dependence, chewing tobacco, with other nicotine-induced disorders; Z95.5 Presence of coronary angioplasty implant and graft; Z79.4 Long term (current) use of insulin; Z88.6 Allergy status to analgesic agent; Z98.890 Other specified postprocedural states; Z79.899 Other long term (current) drug therapy
CPT/HCPCS: 42826; 82962; 88184; 88185; 88304; J1100; J1170; J2250; J2405; J2704; J2710; J3010; J3490; J7120

== ENCOUNTER 2017-07-09 18:21 | Observation (INO) | payer OTHER ==
[2017-07-09] MEDS: IV NORMAL SALINE 1000ML BAG 1,000 ML IV ×3 (19:05→21:48)
[2017-07-09 19:12] LABS: ADD MAN DIFF? NO
[2017-07-09 19:14] LABS: BASO # 0.1 x10^3/uL (0.0-0.2); BASO % 1 % (0-3); EOS % 0 % (0-3); HEMATOCRIT 47.1 % (39.0-53.0); HEMOGLOBIN 16.6 g/dL (13.0-17.5); LYMPH # 2.5 x10^3/uL (1.0-4.8); LYMPH % 19 % (24-48); MEAN CORPUSCULAR HEMOGLOBIN 31 pg (25-35); MEAN CORPUSCULAR HGB CONC 35 g/dL (31-37); MEAN CORPUSCULAR VOLUME 87 fL (79-100); MONO # 1.3 x10^3/uL (0.0-1.1); MONO % 10 % (0-9); NEUT # 9.4 x10^3uL (1.8-7.7); NEUT % 70 % (31-73); PLATELET COUNT 179 x10^3/uL (140-400); RED CELL DISTRIBUTION WIDTH 14.3 % (11.5-14.5); WHITE BLOOD COUNT 13.4 x10^3/uL (4.0-11.0)
[2017-07-09 19:24] LABS: ANION GAP 11 (6-14); BLOOD UREA NITROGEN 15 mg/dL (8-26); BUN/CREATININE RATIO 11 (6-20); CALCIUM 9.5 mg/dL (8.5-10.1); CARBON DIOXIDE 27 mmol/L (21-32); CHLORIDE 104 mmol/L (98-107); CREATININE 1.4 mg/dL (0.7-1.3); GFR 54.3; GLUCOSE 98 mg/dL (70-99); POTASSIUM 3.5 mmol/L (3.5-5.1); SODIUM 142 mmol/L (136-145)
[2017-07-09 19:25] LABS: ETHANOL < 10 mg/dL (0-10)
[2017-07-09 19:30] LABS: ALBUMIN/GLOBULIN RATIO 1.2 (1.0-1.7); ALK PHOS 103 U/L (46-116); ALT (SGPT) 46 U/L (16-63); AST (SGOT) 27 U/L (15-37); TOTAL PROTEIN 7.3 g/dL (6.4-8.2)
[2017-07-09 19:32] LABS: TROPONINI < 0.017 ng/mL (0.000-0.055)
[2017-07-09] MEDS ORDERED: ONDANSETRON PF 4 MG/2 ML VIAL. IV ×2 (19:45→20:45)
[2017-07-09 20:25] LABS: BILIRUBIN,URINE NEGATIVE (NEG); CLARITY,URINE CLEAR; COLOR,URINE YELLOW; GLUCOSE,URINE 250 mg/dL (NEG); NITRITE,URINE NEGATIVE (NEG); PROTEIN,URINE 100 mg/dL (NEG-TRACE); UROBILINOGEN,URINE 0.2 mg/dL (0.2 mg/dL)
[2017-07-09 20:30] LABS: AMPHETAMINE/METHAMPHETAMINE NEG (NEG); BARBITURATES NEG (NEG); BENZODIAZEPINES NEG (NEG); CANNABINOIDS NEG (NEG); COCAINE NEG (NEG); ETHANOL, URINE NEG (NEG); METHADONE NEG (NEG); OPIATES NEG (NEG); PHENCYCLIDINE NEG (NEG)
[2017-07-09 20:33] LABS: BACTERIA,URINE 0 /HPF (0-FEW); HYALINE CASTS, URINE MODERATE /HPF; RBC,URINE 0 /HPF (0-2); WBC,URINE OCC /HPF (0-4)
[2017-07-09] MEDS ORDERED: DEXTROSE 50% 25 GM / 50ML DISP.SYRIN. IV (20:45)
[2017-07-09] MEDS ORDERED: ONDANSETRON ODT 4 MG TAB.RAPDIS. PO (20:45)
[2017-07-09] MEDS ORDERED: NITROGLYCERIN SUBLINGUAL 0.4 MG BOTTLE OF 25. SL (20:45)
[2017-07-09] MEDS ORDERED: ZOLPIDEM 5 MG TABLET. PO (21:00)
[2017-07-09] MEDS: DULoxetine HCL 30 MG CAPSULE.DR PO (21:47)
[2017-07-09] MEDS: POTASSIUM CITRATE 10 MEQ TABLET.ER PO (21:47)
[2017-07-09] MEDS: PREGABALIN 50 MG CAPSULE PO (21:47)
[2017-07-09] MEDS: ATORVASTATIN CALCIUM 20 MG TABLET PO (21:47)
[2017-07-09 23:38] LABS: TROPONINI < 0.017 ng/mL (0.000-0.055)
[2017-07-09 23:44] LABS: THYROID STIM HORMONE (TSH) 8.178 uIU/mL (0.358-3.74)
[2017-07-10] MEDS ORDERED: ACETAMINOPHEN 160 MG/5 ML ORAL.SUSP. PO
[2017-07-10] MEDS: IV NORMAL SALINE 1000ML BAG 1,000 ML IV ×2 (03:33→10:07)
[2017-07-10] MEDS: ACETAMINOPHEN 500 MG TABLET PO (05:03)
[2017-07-10 06:01] LABS: TROPONINI < 0.017 ng/mL (0.000-0.055)
[2017-07-10] MEDS: LEVOTHYROXINE 100 MCG TABLET PO (06:07)
[2017-07-10] MEDS: oxyCODONE IR 5 MG TABLET PO (06:09)
[2017-07-10 07:47] LABS: POC GLUCOSE 195 mg/dL (70-99)
[2017-07-10] MEDS: POTASSIUM CITRATE 10 MEQ TABLET.ER PO (08:00)
[2017-07-10] MEDS: PRASUGREL 10 MG TABLET. PO (08:40)
[2017-07-10] MEDS: hydroCHLOROthiazide 25 MG TABLET PO (08:41)
[2017-07-10] MEDS: amLODIPine BESYLATE 10 MG TABLET PO (08:41)
[2017-07-10] MEDS: LISINOPRIL 20 MG TABLET PO (08:41)
[2017-07-10] MEDS: DULoxetine HCL 30 MG CAPSULE.DR PO (08:42)
[2017-07-10] MEDS: PREGABALIN 50 MG CAPSULE PO (08:42)
[2017-07-10] MEDS ORDERED: NON FORMULARY ITEM (Lisinopril/Hydrochlorothiazide (Lisinopril-Hctz 20-25 Mg Tab) 1 TAB) PO (09:00)
[2017-07-10] MEDS ORDERED: NON FORMULARY ITEM (Liraglutide (Victoza 3-Pak) 1.8 MG) SQ (09:00)
[2017-07-10] MEDS: INSULIN LISPRO 300 UNITS/3 ML INSULN.PEN. SQ (09:01)
[2017-07-10] MEDS ORDERED: DEXTROSE 50% 25 GM / 50ML DISP.SYRIN. IV (10:00)
[2017-07-10] MEDS ORDERED: INSULIN LISPRO 300 UNITS/3 ML INSULN.PEN. SQ (12:00)
[2017-07-10 12:15] LABS: POC GLUCOSE 165 mg/dL (70-99)
== END 2017-07-10 12:43 | disposition home or self-care (01) ==
LOC: ER 18:21 → 6 SOUTH 19:36
DX: I95.9 Hypotension, unspecified (principal); G93.40 Encephalopathy, unspecified; E11.649 Type 2 diabetes mellitus with hypoglycemia without coma; E11.22 Type 2 diabetes mellitus with diabetic chronic kidney disease; E44.1 Mild protein-calorie malnutrition; D72.829 Elevated white blood cell count, unspecified; I25.10 Atherosclerotic heart disease of native coronary artery without angina pectoris; E03.9 Hypothyroidism, unspecified; Z88.8 Allergy status to other drugs, medicaments and biological substances; E66.3 Overweight; E78.5 Hyperlipidemia, unspecified; I12.9 Hypertensive chronic kidney disease with stage 1 through stage 4 chronic kidney disease, or unspecified chronic kidney disease; M19.90 Unspecified osteoarthritis, unspecified site; N18.9 Chronic kidney disease, unspecified; Z68.31 Body mass index [BMI] 31.0-31.9, adult; Z82.49 Family history of ischemic heart disease and other diseases of the circulatory system; Z83.3 Family history of diabetes mellitus; Z87.442 Personal history of urinary calculi; Z79.4 Long term (current) use of insulin
CPT/HCPCS: 36415; 70450; 71045; 80053; 80307; 81001; 82962; 84443; 84484; 85025; 93005; 96360; 96361; 96372; 99285-25; G0378; G0379; G0480; J1815; J7030

== ENCOUNTER 2017-11-18 02:18 | Emergency (ER) | payer OTHER ==
[~2017-11-18] VITALS: Ht 190.5 cm; Wt 113.4 kg
[~2017-11-18 02:18] MED LIST changes: +ACET-1891 PO; -AMLO10TA2 PO; +AMLO10TA6 PO; +DULO30CA2 PO; +ESZO3TAB28 PO; +HYDR-971 PO; +INSU100C4 SQ; +LIRA0.6P2 SQ; +LISI1TAB7 PO; +NITR0.4T SL; +ONDA4TAB10 SL; +OXYC5CAP PO; +POTA10TA17 PO; -PRAS10TA4 PO; +PRAS10TA9 PO; +PREG100C PO
[2017-11-18 03:10] LABS: BASO # 0.1 x10^3/uL (0.0-0.2); BASO % 1 % (0-3); EOS # 0.1 x10^3/uL (0.0-0.7); EOS % 1 % (0-3); HEMATOCRIT 35.8 % (39.0-53.0); HEMOGLOBIN 12.9 g/dL (13.0-17.5); LYMPH # 2.9 x10^3/uL (1.0-4.8); LYMPH % 24 % (24-48); MEAN CORPUSCULAR HEMOGLOBIN 32 pg (25-35); MEAN CORPUSCULAR HGB CONC 36 g/dL (31-37); MEAN CORPUSCULAR VOLUME 89 fL (79-100); MONO # 0.9 x10^3/uL (0.0-1.1); MONO % 8 % (0-9); NEUT # 8.1 x10^3uL (1.8-7.7); NEUT % 67 % (31-73); PLATELET COUNT 137 x10^3/uL (140-400); RED BLOOD COUNT 4.04 x10^6/uL (4.30-5.70); RED CELL DISTRIBUTION WIDTH 14.4 % (11.5-14.5); WHITE BLOOD COUNT 12.1 x10^3/uL (4.0-11.0)
[2017-11-18] MEDS: oxyCODONE/APAP 5/325 1 TAB TABLET PO ONE (03:12)
[2017-11-18 03:15] LABS: CALCIUM 8.3 mg/dL (8.5-10.1); CREATININE 1.5 mg/dL (0.7-1.3); GFR 50.2
[2017-11-18 03:21] LABS: ALBUMIN 3.1 g/dL (3.4-5.0); TOTAL BILIRUBIN 0.7 mg/dL (0.2-1.0); TOTAL PROTEIN 6.2 g/dL (6.4-8.2)
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
[2017-11-18] MEDS: POTASSIUM CHLORIDE 20 MEQ/15 ML ORAL LIQUID. PO ONE (04:08)
[2017-11-18 04:25] VITALS: BP 134/89
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
== END 2017-11-18 04:25 | disposition home or self-care (01) ==
LOC: ER 02:18
DX: S70.12XA Contusion of left thigh, initial encounter (principal); I11.9 Hypertensive heart disease without heart failure; I25.10 Atherosclerotic heart disease of native coronary artery without angina pectoris; E11.9 Type 2 diabetes mellitus without complications; E78.00 Pure hypercholesterolemia, unspecified; E03.9 Hypothyroidism, unspecified; I25.2 Old myocardial infarction; Z90.49 Acquired absence of other specified parts of digestive tract; V49.9XXA Car occupant (driver) (passenger) injured in unspecified traffic accident, initial encounter; Y93.89 Activity, other specified; Y92.410 Unspecified street and highway as the place of occurrence of the external cause; Y99.8 Other external cause status; Z88.5 Allergy status to narcotic agent
CPT/HCPCS: 36415; 73552; 80053; 85025; 99285-25